=== PATIENT | male | born 1980 | race Caucasian/White ===

== ENCOUNTER 2017-04-17 16:48 | Inpatient (IN) | payer OTHER ==
[~2017-04-17] VITALS: Ht 185.4 cm; Wt 113.0 kg
[2017-04-17 17:51] LABS: BASOPHILS % (AUTO) 0.2 % (0-1); EOSINOPHILS % (AUTO) 0.5 % (0-6); HEMATOCRIT 42.1 % (42.0-52.0); HEMOGLOBIN 14.6 g/dl (14.0-17.9); LYMPHOCYTES # (AUTO) 1.4 X10'3 (1.1-4.8); LYMPHOCYTES % (AUTO) 13.6 % (21-51); MEAN CORPUSCULAR HEMOGLOBIN 29.9 PG (27.0-31.0); MEAN CORPUSCULAR HGB CONC 34.7 % (33.0-36.5); MEAN PLATELET VOLUME 7.9 FL (7.4-10.4); MONOCYTES # (AUTO) 0.8 X10'3 (0-0.9); MONOCYTES % (AUTO) 7.6 % (2-12); NEUTROPHILS # (AUTO) 8.2 X10'3 (1.8-7.7); NEUTROPHILS % (AUTO) 78.1 % (42-75); PLATELET COUNT 194 X10'3 (140-440); RED CELL DISTRIBUTION WIDTH 13.2 % (11.5-14.5); WHITE BLOOD COUNT 10.5 X10'3 (4.5-11.0)
[2017-04-17 17:58] LABS: PARTIAL THROMBOPLASTIN TIME 29 SECONDS (22-32); PROTHROMBIN TIME 9.9 SECONDS (9.0-12.0)
[2017-04-17 18:03] LABS: ALANINE AMINOTRANSFERASE 36 U/L (12-78); ALBUMIN 3.5 G/DL (3.4-5.0); ALBUMIN/GLOBULIN RATIO 0.8 (1.1-1.5); ALKALINE PHOSPHATASE 113 IU/L (46-116); ANION GAP 10 (8-16); ASPARTATE AMINO TRANSFERASE 17 U/L (10-37); BILIRUBIN,TOTAL 0.3 MG/DL (0.1-1.0); BLOOD UREA NITROGEN 13 MG/DL (7-18); BUN/CREATININE RATIO 11.9 (5.4-32.0); CALCIUM 8.7 MG/DL (8.5-10.1); CHLORIDE 101 MMOL/L (99-107); CREATININE 1.09 MG/DL (0.60-1.10); GLUCOSE 104 MG/DL (70-104); SODIUM 139 MMOL/L (135-145); TOTAL CARBON DIOXIDE 27.7 MMOL/L (24-32); TOTAL PROTEIN 7.9 G/DL (6.4-8.2); eGFR 76 ML/MIN
[2017-04-17] MEDS ORDERED: normal saline 1000ml 1,000 ML IV ONE (20:05)
[2017-04-17] MEDS ORDERED: vancomycin inj 1,000 MG in normal saline 250ml IV soln 250 ML IV STA (20:17)
[2017-04-17] MEDS ORDERED: iohexol 300mg/ml 100ml inj. ONE (20:22)
[2017-04-17] MEDS ORDERED: vancomycin/NS 1 GM ADD-VANTAGE 250 ML IV ONE (20:22)
[2017-04-17 20:37] LABS: CREATINE KINASE 48 U/L (39-308)
[2017-04-17] MEDS ORDERED: temazepam 15mg capsule PO PRN (21:00)
[2017-04-17 21:24] LABS: CLARITY,URINE CLEAR (Clear); COLOR,URINE YELLOW (Yellow); GLUCOSE, URINE NEGATIVE (Neg); KETONES,URINE NEGATIVE (Neg); LEUKOCYTE ESTERASE ,URINE NEGATIVE (Neg); NITRITES, URINE NEGATIVE (Neg); OCCULT BLOOD,URINE SMALL (Neg); PROTEIN,URINE NEGATIVE (Neg); UROBILINOGEN,URINE 0.2 E.U/dL (0.2-1.0)
[2017-04-17 21:29] LABS: UA COLLECTION TYPE CLN CATCH MIDSTREAM
[2017-04-17 21:30] LABS: BACTERIA,URINE NONE SEEN /HPF (Neg); MUCUS STRANDS NONE SEEN /LPF (Neg); RBC,URINE 0-2 /HPF (0-2); SQUAMOUS EPITHELIAL CELL,UR NONE SEEN /LPF (FEW); WBC,URINE NONE SEEN /HPF (0-4)
[2017-04-17] MEDS ORDERED: HYDROmorphone 1 mg/ml syringe IV ONE (21:50)
[2017-04-17] MEDS ORDERED: HYDROcodone/acetaminophen 5mg/325mg tablet PO ONE (22:15)
[2017-04-17] MEDS ORDERED: DIL100C PO (22:23)
[2017-04-17] MEDS ORDERED: magnesium 2GM in 50ml NS 50 ML IV PRN (23:55)
[2017-04-17] MEDS ORDERED: ondansetron/PF 4mg/2ml inj IV PRN (23:55)
[2017-04-17] MEDS ORDERED: potassium Cl 20 mEq SR tablet PO PRN ×2 (23:55)
[2017-04-17] MEDS ORDERED: morphine 2 MG/ML inj. syringe IV PRN ×2 (23:55)
[2017-04-17] MEDS ORDERED: magnesium hydroxide 30ml (MOM) UD suspension PO PRN (23:55)
[2017-04-17] MEDS ORDERED: HYDROcodone/acetaminophen 5mg/325mg tablet PO PRN (23:55)
[2017-04-17] MEDS ORDERED: mag hydrox/Alum hydrox/simeth 30ml oral suspension PO PRN (23:55)
[2017-04-17] MEDS ORDERED: potassium Cl 40MEQ/NS 500ml 500 ML IV PRN ×2 (23:55)
[2017-04-17] MEDS ORDERED: magnesium 4gm in 100ml NS 100 ML IV PRN (23:55)
[2017-04-17] MEDS ORDERED: acetaminophen 325mg tablet PO PRN (23:55)
[2017-04-17] MEDS ORDERED: magnesium Cl slow-release 64mg tablet PO PRN (23:55)
[2017-04-18 00:09] LABS: PHENYTOIN (DILANTIN) 5.8 UG/ML (10.0-20.0)
[2017-04-18] MEDS: levoFLOXACIN-Levaquin 750MG/D5 150 ML IV SCH (00:36)
[2017-04-18] MEDS: normal saline 1000ml 1,000 ML IV SCH ×3 (00:36→19:54)
[2017-04-18] MEDS ORDERED: phenytoin sod ER 100mg capsule PO ONE (02:20)
[2017-04-18] MEDS: K and/or MAG REPLACEMENT MC SCH (07:24)
[2017-04-18] MEDS: ibuprofen tablet 400 MG TABLET PO PRN ×2 (07:33→17:17)
[2017-04-18 07:36] LABS: BASOPHILS % (AUTO) 0.1 % (0-1); EOSINOPHILS # (AUTO) 0.1 X10'3 (0-0.9); EOSINOPHILS % (AUTO) 1.2 % (0-6); HEMATOCRIT 36.3 % (42.0-52.0); HEMOGLOBIN 12.9 g/dl (14.0-17.9); LYMPHOCYTES # (AUTO) 0.9 X10'3 (1.1-4.8); LYMPHOCYTES % (AUTO) 10.6 % (21-51); MEAN CORPUSCULAR HEMOGLOBIN 30.3 PG (27.0-31.0); MEAN CORPUSCULAR HGB CONC 35.6 % (33.0-36.5); MEAN CORPUSCULAR VOLUME 85.1 FL (78-98); MEAN PLATELET VOLUME 8.2 FL (7.4-10.4); MONOCYTES # (AUTO) 0.8 X10'3 (0-0.9); MONOCYTES % (AUTO) 9.6 % (2-12); NEUTROPHILS # (AUTO) 6.3 X10'3 (1.8-7.7); NEUTROPHILS % (AUTO) 78.5 % (42-75); PLATELET COUNT 161 X10'3 (140-440); RED BLOOD COUNT 4.26 X10'6 (4.70-6.10); RED CELL DISTRIBUTION WIDTH 13.4 % (11.5-14.5); WHITE BLOOD COUNT 8.1 X10'3 (4.5-11.0)
[2017-04-18] MEDS: heparin, porcine 5000 units/ml vial SQ SCH ×2 (07:52→20:54)
[2017-04-18 07:54] LABS: ALANINE AMINOTRANSFERASE 42 U/L (12-78); ALBUMIN 2.7 G/DL (3.4-5.0); ALBUMIN/GLOBULIN RATIO 0.7 (1.1-1.5); ALKALINE PHOSPHATASE 98 IU/L (46-116); ANION GAP 9 (8-16); ASPARTATE AMINO TRANSFERASE 22 U/L (10-37); BILIRUBIN,TOTAL 0.3 MG/DL (0.1-1.0); BLOOD UREA NITROGEN 9 MG/DL (7-18); BUN/CREATININE RATIO 9.7 (5.4-32.0); CALCIUM 7.7 MG/DL (8.5-10.1); CHLORIDE 103 MMOL/L (99-107); CREATININE 0.93 MG/DL (0.60-1.10); GLUCOSE 103 MG/DL (70-104); MAGNESIUM 1.9 MG/DL (1.5-2.4); POTASSIUM 4.1 MMOL/L (3.5-5.1); SODIUM 138 MMOL/L (135-145); TOTAL CARBON DIOXIDE 26.2 MMOL/L (24-32); TOTAL PROTEIN 6.5 G/DL (6.4-8.2); eGFR > 90 ML/MIN
[2017-04-18] MEDS ORDERED: levetiracetam 250mg tablet PO ONE (07:55)
[2017-04-18] MEDS ORDERED: vancomycin/NS 1 GM ADD-VANTAGE 250 ML IV SCH (08:00)
[2017-04-18] MEDS ORDERED: phenytoin sod ER 100mg capsule PO SCH (08:00)
[2017-04-18] MEDS: levetiracetam 250mg tablet PO SCH ×2 (08:00→20:54)
[2017-04-18 16:28] VITALS: BP 126/72
[2017-04-18 18:00] VITALS: BP 126/62
[2017-04-19] VITALS: BP 101/57
[2017-04-19] MEDS: levoFLOXACIN-Levaquin 750MG/D5 150 ML IV SCH (01:27)
[2017-04-19] MEDS: normal saline 1000ml 1,000 ML IV SCH ×2 (05:02→15:59)
[2017-04-19] MEDS: ibuprofen tablet 400 MG TABLET PO PRN ×2 (05:02→19:49)
[2017-04-19 05:56] LABS: BASOPHILS % (AUTO) 0.5 % (0-1); EOSINOPHILS # (AUTO) 0.2 X10'3 (0-0.9); EOSINOPHILS % (AUTO) 3.1 % (0-6); HEMATOCRIT 37.4 % (42.0-52.0); HEMOGLOBIN 13.1 g/dl (14.0-17.9); LYMPHOCYTES # (AUTO) 1.1 X10'3 (1.1-4.8); LYMPHOCYTES % (AUTO) 15.6 % (21-51); MEAN CORPUSCULAR HEMOGLOBIN 30.1 PG (27.0-31.0); MEAN CORPUSCULAR HGB CONC 34.9 % (33.0-36.5); MEAN PLATELET VOLUME 8.2 FL (7.4-10.4); MONOCYTES # (AUTO) 0.6 X10'3 (0-0.9); MONOCYTES % (AUTO) 9.3 % (2-12); NEUTROPHILS % (AUTO) 71.5 % (42-75); PLATELET COUNT 200 X10'3 (140-440); RED BLOOD COUNT 4.35 X10'6 (4.70-6.10)
[2017-04-19 06:18] LABS: ALANINE AMINOTRANSFERASE 63 U/L (12-78); ALBUMIN 2.4 G/DL (3.4-5.0); ALBUMIN/GLOBULIN RATIO 0.6 (1.1-1.5); ALKALINE PHOSPHATASE 115 IU/L (46-116); ANION GAP 8 (8-16); ASPARTATE AMINO TRANSFERASE 41 U/L (10-37); BILIRUBIN,TOTAL 0.2 MG/DL (0.1-1.0); BLOOD UREA NITROGEN 12 MG/DL (7-18); BUN/CREATININE RATIO 16.7 (5.4-32.0); CALCIUM 7.9 MG/DL (8.5-10.1); CHLORIDE 106 MMOL/L (99-107); CREATININE 0.72 MG/DL (0.60-1.10); GLUCOSE 97 MG/DL (70-104); MAGNESIUM 1.9 MG/DL (1.5-2.4); SODIUM 141 MMOL/L (135-145); TOTAL CARBON DIOXIDE 26.8 MMOL/L (24-32); TOTAL PROTEIN 6.6 G/DL (6.4-8.2); eGFR > 90 ML/MIN
[2017-04-19 06:20] LABS: POTASSIUM 4.2 MMOL/L (3.5-5.1)
[2017-04-19 07:00] VITALS: BP 128/80
[2017-04-19] MEDS: K and/or MAG REPLACEMENT MC SCH (08:00)
[2017-04-19] MEDS: levetiracetam 250mg tablet PO SCH ×2 (08:00→21:15)
[2017-04-19] MEDS: heparin, porcine 5000 units/ml vial SQ SCH ×2 (08:34→19:50)
[2017-04-19 11:00] VITALS: BP 123/82
[2017-04-19] MEDS: HYDROcodone/acetaminophen 10/325mg tab PO PRN (12:28)
[2017-04-19] MEDS ORDERED: VANCOMYCIN LEVEL IV ONE (15:30)
[2017-04-19] MEDS: lactobacillus rhamnosus 10,000 MMU CELLS/CAPSULE PO SCH (17:16)
[2017-04-19 18:00] VITALS: BP 126/75
[2017-04-20] VITALS: BP 116/62
[2017-04-20] MEDS: levoFLOXACIN-Levaquin 750MG/D5 150 ML IV SCH (01:25)
[2017-04-20] MEDS: normal saline 1000ml 1,000 ML IV SCH ×3 (01:54→19:43)
[2017-04-20] MEDS: ibuprofen tablet 400 MG TABLET PO PRN ×3 (03:07→21:32)
[2017-04-20 03:36] LABS: BASOPHILS # (AUTO) 0.1 X10'3 (0-0.2); BASOPHILS % (AUTO) 0.7 % (0-1); EOSINOPHILS # (AUTO) 0.2 X10'3 (0-0.9); HEMATOCRIT 36.6 % (42.0-52.0); HEMOGLOBIN 12.7 g/dl (14.0-17.9); LYMPHOCYTES # (AUTO) 2.1 X10'3 (1.1-4.8); LYMPHOCYTES % (AUTO) 25.9 % (21-51); MEAN CORPUSCULAR HEMOGLOBIN 30.2 PG (27.0-31.0); MEAN CORPUSCULAR HGB CONC 34.8 % (33.0-36.5); MEAN CORPUSCULAR VOLUME 86.8 FL (78-98); MEAN PLATELET VOLUME 7.9 FL (7.4-10.4); MONOCYTES # (AUTO) 0.6 X10'3 (0-0.9); MONOCYTES % (AUTO) 7.9 % (2-12); NEUTROPHILS # (AUTO) 5.1 X10'3 (1.8-7.7); NEUTROPHILS % (AUTO) 62.5 % (42-75); PLATELET COUNT 233 X10'3 (140-440); RED BLOOD COUNT 4.22 X10'6 (4.70-6.10); RED CELL DISTRIBUTION WIDTH 13.2 % (11.5-14.5); WHITE BLOOD COUNT 8.1 X10'3 (4.5-11.0)
[2017-04-20 03:52] LABS: ALANINE AMINOTRANSFERASE 79 U/L (12-78); ALBUMIN 2.4 G/DL (3.4-5.0); ALBUMIN/GLOBULIN RATIO 0.6 (1.1-1.5); ALKALINE PHOSPHATASE 138 IU/L (46-116); ANION GAP 7 (8-16); ASPARTATE AMINO TRANSFERASE 40 U/L (10-37); BILIRUBIN,TOTAL 0.2 MG/DL (0.1-1.0); BLOOD UREA NITROGEN 16 MG/DL (7-18); BUN/CREATININE RATIO 18.8 (5.4-32.0); CALCIUM 8.3 MG/DL (8.5-10.1); CHLORIDE 107 MMOL/L (99-107); CREATININE 0.85 MG/DL (0.60-1.10); GLUCOSE 105 MG/DL (70-104); MAGNESIUM 2.3 MG/DL (1.5-2.4); SODIUM 144 MMOL/L (135-145); TOTAL CARBON DIOXIDE 30.2 MMOL/L (24-32); TOTAL PROTEIN 6.5 G/DL (6.4-8.2); eGFR > 90 ML/MIN
[2017-04-20 07:23] VITALS: BP 118/73
[2017-04-20] MEDS: heparin, porcine 5000 units/ml vial SQ SCH ×2 (07:37→19:40)
[2017-04-20] MEDS: lactobacillus rhamnosus 10,000 MMU CELLS/CAPSULE PO SCH ×2 (07:37→17:06)
[2017-04-20] MEDS: K and/or MAG REPLACEMENT MC SCH (08:00)
[2017-04-20] MEDS: levetiracetam 250mg tablet PO SCH ×2 (08:00→21:32)
[2017-04-20 11:00] VITALS: BP 124/72
[2017-04-20] MEDS ORDERED: piperacillin/tazo 3.375gm/50ml 50 ML IV ONE (11:45)
[2017-04-20] MEDS ORDERED: triamcinolone acetonide 0.1% ointment 15gm TP ONE (11:45)
[2017-04-20] MEDS: piperacillin/tazo 3.375gm/50ml 50 ML IV SCH ×2 (13:22→19:40)
[2017-04-20] MEDS: vancomycin inj 1,250 MG in normal saline 250ml IV soln 250 ML IV SCH ×2 (14:09→20:32)
[2017-04-20 20:00] VITALS: BP 135/73
[2017-04-20] MEDS: triamcinolone acetonide 0.1% ointment 15gm TP SCH (20:00)
[2017-04-21] VITALS: BP 122/71
[2017-04-21] MEDS: piperacillin/tazo 3.375gm/50ml 50 ML IV SCH ×4 (01:47→19:44)
[2017-04-21] MEDS: vancomycin inj 1,250 MG in normal saline 250ml IV soln 250 ML IV SCH ×4 (02:47→21:05)
[2017-04-21 06:52] VITALS: BP 126/79
[2017-04-21] MEDS: lactobacillus rhamnosus 10,000 MMU CELLS/CAPSULE PO SCH ×2 (07:25→17:30)
[2017-04-21] MEDS: ibuprofen tablet 400 MG TABLET PO PRN ×2 (07:25→19:44)
[2017-04-21] MEDS: heparin, porcine 5000 units/ml vial SQ SCH ×2 (07:26→19:44)
[2017-04-21] MEDS ORDERED: VANCOMYCIN LEVEL IV NR (07:30)
[2017-04-21] MEDS: normal saline 1000ml 1,000 ML IV SCH ×2 (07:54→13:05)
[2017-04-21] MEDS: K and/or MAG REPLACEMENT MC SCH (08:00)
[2017-04-21] MEDS: triamcinolone acetonide 0.1% ointment 15gm TP SCH ×2 (08:00→20:00)
[2017-04-21] MEDS: levetiracetam 250mg tablet PO SCH ×2 (08:49→21:33)
[2017-04-21 08:53] LABS: BASOPHILS # (AUTO) 0.1 X10'3 (0-0.2); BASOPHILS % (AUTO) 0.7 % (0-1); EOSINOPHILS # (AUTO) 0.2 X10'3 (0-0.9); EOSINOPHILS % (AUTO) 2.8 % (0-6); HEMATOCRIT 37.3 % (42.0-52.0); HEMOGLOBIN 13.3 g/dl (14.0-17.9); LYMPHOCYTES # (AUTO) 1.6 X10'3 (1.1-4.8); LYMPHOCYTES % (AUTO) 18.9 % (21-51); MEAN CORPUSCULAR HEMOGLOBIN 30.4 PG (27.0-31.0); MEAN CORPUSCULAR HGB CONC 35.7 % (33.0-36.5); MEAN CORPUSCULAR VOLUME 85.1 FL (78-98); MEAN PLATELET VOLUME 7.4 FL (7.4-10.4); MONOCYTES # (AUTO) 0.5 X10'3 (0-0.9); MONOCYTES % (AUTO) 5.9 % (2-12); NEUTROPHILS # (AUTO) 5.9 X10'3 (1.8-7.7); NEUTROPHILS % (AUTO) 71.7 % (42-75); PLATELET COUNT 292 X10'3 (140-440); RED BLOOD COUNT 4.38 X10'6 (4.70-6.10); RED CELL DISTRIBUTION WIDTH 13.3 % (11.5-14.5); WHITE BLOOD COUNT 8.2 X10'3 (4.5-11.0)
[2017-04-21 09:13] LABS: ALANINE AMINOTRANSFERASE 76 U/L (12-78); ALBUMIN 2.5 G/DL (3.4-5.0); ALBUMIN/GLOBULIN RATIO 0.6 (1.1-1.5); ALKALINE PHOSPHATASE 159 IU/L (46-116); ANION GAP 7 (8-16); ASPARTATE AMINO TRANSFERASE 39 U/L (10-37); BILIRUBIN,TOTAL 0.4 MG/DL (0.1-1.0); BLOOD UREA NITROGEN 9 MG/DL (7-18); CALCIUM 8.4 MG/DL (8.5-10.1); CHLORIDE 105 MMOL/L (99-107); CREATININE 0.82 MG/DL (0.60-1.10); GLUCOSE 92 MG/DL (70-104); MAGNESIUM 2.1 MG/DL (1.5-2.4); POTASSIUM 4.2 MMOL/L (3.5-5.1); SODIUM 142 MMOL/L (135-145); TOTAL CARBON DIOXIDE 30.2 MMOL/L (24-32); TOTAL PROTEIN 6.9 G/DL (6.4-8.2); eGFR > 90 ML/MIN
[2017-04-21 09:16] LABS: VANCOMYCIN,TROUGH 17.5 UG/ML (6.0-14.0)
[2017-04-21 11:24] VITALS: BP 121/69
[2017-04-21 20:00] VITALS: BP 138/77
[2017-04-22] VITALS: BP 110/62
[2017-04-22] MEDS: piperacillin/tazo 3.375gm/50ml 50 ML IV SCH ×3 (02:11→15:03)
[2017-04-22] MEDS: vancomycin inj 1,250 MG in normal saline 250ml IV soln 250 ML IV SCH ×4 (02:49→20:50)
[2017-04-22] MEDS: normal saline 1000ml 1,000 ML IV SCH ×3 (04:35→23:54)
[2017-04-22 05:43] LABS: BASOPHILS # (AUTO) 0.1 X10'3 (0-0.2); BASOPHILS % (AUTO) 0.8 % (0-1); EOSINOPHILS # (AUTO) 0.4 X10'3 (0-0.9); EOSINOPHILS % (AUTO) 4.6 % (0-6); HEMATOCRIT 38.5 % (42.0-52.0); HEMOGLOBIN 13.4 g/dl (14.0-17.9); LYMPHOCYTES # (AUTO) 1.6 X10'3 (1.1-4.8); LYMPHOCYTES % (AUTO) 19.1 % (21-51); MEAN CORPUSCULAR HGB CONC 34.8 % (33.0-36.5); MEAN PLATELET VOLUME 7.4 FL (7.4-10.4); MONOCYTES # (AUTO) 0.6 X10'3 (0-0.9); MONOCYTES % (AUTO) 7.4 % (2-12); NEUTROPHILS # (AUTO) 5.6 X10'3 (1.8-7.7); NEUTROPHILS % (AUTO) 68.1 % (42-75); PLATELET COUNT 327 X10'3 (140-440); RED BLOOD COUNT 4.48 X10'6 (4.70-6.10); RED CELL DISTRIBUTION WIDTH 13.5 % (11.5-14.5); WHITE BLOOD COUNT 8.2 X10'3 (4.5-11.0)
[2017-04-22 06:19] LABS: ALANINE AMINOTRANSFERASE 126 U/L (12-78); ALBUMIN 2.5 G/DL (3.4-5.0); ALBUMIN/GLOBULIN RATIO 0.6 (1.1-1.5); ALKALINE PHOSPHATASE 180 IU/L (46-116); ANION GAP 8 (8-16); ASPARTATE AMINO TRANSFERASE 54 U/L (10-37); BILIRUBIN,TOTAL 0.3 MG/DL (0.1-1.0); BLOOD UREA NITROGEN 10 MG/DL (7-18); BUN/CREATININE RATIO 11.9 (5.4-32.0); CALCIUM 8.1 MG/DL (8.5-10.1); CHLORIDE 106 MMOL/L (99-107); CREATININE 0.84 MG/DL (0.60-1.10); GLUCOSE 94 MG/DL (70-104); MAGNESIUM 2.4 MG/DL (1.5-2.4); POTASSIUM 4.2 MMOL/L (3.5-5.1); SODIUM 142 MMOL/L (135-145); TOTAL CARBON DIOXIDE 27.6 MMOL/L (24-32); TOTAL PROTEIN 6.8 G/DL (6.4-8.2); eGFR > 90 ML/MIN
[2017-04-22 07:25] VITALS: BP 120/64
[2017-04-22] MEDS: triamcinolone acetonide 0.1% ointment 15gm TP SCH ×3 (08:00→20:53)
[2017-04-22] MEDS: K and/or MAG REPLACEMENT MC SCH (08:00)
[2017-04-22] MEDS: lactobacillus rhamnosus 10,000 MMU CELLS/CAPSULE PO SCH ×2 (08:41→17:04)
[2017-04-22] MEDS: heparin, porcine 5000 units/ml vial SQ SCH ×2 (08:42→20:53)
[2017-04-22] MEDS: levetiracetam 250mg tablet PO SCH ×2 (08:44→20:59)
[2017-04-22 11:00] VITALS: BP 126/69
[2017-04-22] MEDS: HYDROcodone/acetaminophen 10/325mg tab PO PRN (17:06)
[2017-04-22 20:00] VITALS: BP 132/80
[2017-04-22] MEDS ORDERED: phenytoin sod ER 100mg capsule PO SCH (21:00)
[2017-04-22] MEDS: ibuprofen tablet 400 MG TABLET PO PRN (22:46)
[2017-04-23] VITALS: BP 138/94
[2017-04-23] MEDS: vancomycin inj 1,250 MG in normal saline 250ml IV soln 250 ML IV SCH ×4 (02:01→20:37)
[2017-04-23] MEDS: normal saline 1000ml 1,000 ML IV SCH ×2 (02:04→14:00)
[2017-04-23] MEDS: levetiracetam 250mg tablet PO SCH ×2 (08:00→20:37)
[2017-04-23] MEDS: K and/or MAG REPLACEMENT MC SCH (08:00)
[2017-04-23 08:05] VITALS: BP 114/67
[2017-04-23] MEDS: lactobacillus rhamnosus 10,000 MMU CELLS/CAPSULE PO SCH ×2 (09:40→16:58)
[2017-04-23] MEDS: heparin, porcine 5000 units/ml vial SQ SCH ×2 (09:43→20:38)
[2017-04-23 11:00] VITALS: BP 130/79
[2017-04-23] MEDS: HYDROcodone/acetaminophen 10/325mg tab PO PRN (12:40)
[2017-04-23 20:00] VITALS: BP 132/74
[2017-04-23] MEDS: triamcinolone acetonide 0.1% ointment 15gm TP SCH (20:37)
[2017-04-23] MEDS: ibuprofen tablet 400 MG TABLET PO PRN (20:39)
[2017-04-24] VITALS: BP 124/73
[2017-04-24] MEDS: vancomycin inj 1,250 MG in normal saline 250ml IV soln 250 ML IV SCH ×4 (02:16→19:18)
[2017-04-24] MEDS: normal saline 1000ml 1,000 ML IV SCH ×2 (02:16→17:15)
[2017-04-24 08:00] VITALS: BP 120/75
[2017-04-24] MEDS: K and/or MAG REPLACEMENT MC SCH (08:00)
[2017-04-24] MEDS: levetiracetam 250mg tablet PO SCH ×2 (08:00→21:34)
[2017-04-24] MEDS: heparin, porcine 5000 units/ml vial SQ SCH ×2 (08:48→19:18)
[2017-04-24] MEDS: triamcinolone acetonide 0.1% ointment 15gm TP SCH ×2 (08:49→19:22)
[2017-04-24] MEDS: lactobacillus rhamnosus 10,000 MMU CELLS/CAPSULE PO SCH ×2 (08:53→17:14)
[2017-04-24 09:29] LABS: BASOPHILS # (AUTO) 0.1 X10'3 (0-0.2); BASOPHILS % (AUTO) 0.7 % (0-1); EOSINOPHILS # (AUTO) 0.3 X10'3 (0-0.9); EOSINOPHILS % (AUTO) 3.5 % (0-6); HEMATOCRIT 39.5 % (42.0-52.0); LYMPHOCYTES # (AUTO) 1.6 X10'3 (1.1-4.8); LYMPHOCYTES % (AUTO) 19.5 % (21-51); MEAN CORPUSCULAR HGB CONC 35.3 % (33.0-36.5); MEAN CORPUSCULAR VOLUME 84.8 FL (78-98); MEAN PLATELET VOLUME 7.2 FL (7.4-10.4); MONOCYTES # (AUTO) 0.8 X10'3 (0-0.9); MONOCYTES % (AUTO) 9.3 % (2-12); NEUTROPHILS # (AUTO) 5.5 X10'3 (1.8-7.7); PLATELET COUNT 423 X10'3 (140-440); RED BLOOD COUNT 4.66 X10'6 (4.70-6.10); RED CELL DISTRIBUTION WIDTH 13.5 % (11.5-14.5); WHITE BLOOD COUNT 8.2 X10'3 (4.5-11.0)
[2017-04-24 09:38] LABS: ALBUMIN 2.8 G/DL (3.4-5.0); ANION GAP 10 (8-16); BLOOD UREA NITROGEN 12 MG/DL (7-18); BUN/CREATININE RATIO 15.4 (5.4-32.0); CALCIUM 9.1 MG/DL (8.5-10.1); CHLORIDE 107 MMOL/L (99-107); CREATININE 0.78 MG/DL (0.60-1.10); GLUCOSE 104 MG/DL (70-104); MAGNESIUM 2.4 MG/DL (1.5-2.4); POTASSIUM 4.1 MMOL/L (3.5-5.1); SODIUM 144 MMOL/L (135-145); TOTAL CARBON DIOXIDE 27.3 MMOL/L (24-32); eGFR > 90 ML/MIN
[2017-04-24] MEDS: HYDROcodone/acetaminophen 10/325mg tab PO PRN (11:33)
[2017-04-24 12:16] VITALS: BP 134/77
[2017-04-24 19:00] VITALS: BP 126/71
[2017-04-24] MEDS: ibuprofen tablet 400 MG TABLET PO PRN (19:29)
[2017-04-25] VITALS: BP 107/51
[2017-04-25] MEDS: vancomycin inj 1,250 MG in normal saline 250ml IV soln 250 ML IV SCH (01:29)
[2017-04-25] MEDS: normal saline 1000ml 1,000 ML IV SCH ×2 (01:30→11:54)
[2017-04-25] MEDS: heparin, porcine 5000 units/ml vial SQ SCH (08:00)
[2017-04-25] MEDS: levetiracetam 250mg tablet PO SCH (08:00)
[2017-04-25] MEDS: K and/or MAG REPLACEMENT MC SCH (08:00)
[2017-04-25] MEDS: lactobacillus rhamnosus 10,000 MMU CELLS/CAPSULE PO SCH (08:13)
[2017-04-25 08:24] VITALS: BP 116/66
[2017-04-25] MEDS: HYDROcodone/acetaminophen 10/325mg tab PO PRN (09:31)
[2017-04-25] MEDS ORDERED: TRIA15OI2 TP (11:59)
[2017-04-25] MEDS ORDERED: LACT1CAP26 PO (11:59)
[2017-04-25] MEDS ORDERED: LEVE250T PO (11:59)
[2017-04-25] MEDS ORDERED: TEMA15CA PO (11:59)
[2017-04-25] MEDS ORDERED: HYDR-3972 PO (11:59)
[2017-04-25] MEDS ORDERED: DOXY-200 PO (11:59)
[2017-04-25] MEDS ORDERED: IBUP-1984 PO (11:59)
[2017-04-25] MEDS: triamcinolone acetonide 0.1% ointment 15gm TP SCH (12:02)
[2017-04-25 12:25] VITALS: BP 125/80
[2017-04-25] MEDS ORDERED: doxycycline hyclate 100mg tablet.DR PO SCH (17:30)
== END 2017-04-25 14:00 | disposition home or self-care (01) | DRG 918 ==
LOC: ER 16:49 → ED HOLD 23:54 → MED 3N 04-18 16:26
PROVIDERS: ADMIT Internal Medicine; ATTEND Internal Medicine Nephrology
PROC: 0H9KXZZ Drainage of Right Lower Leg Skin, External Approach (ICD-10-PCS; principal; 2017-04-22)
DX: T65.891A Toxic effect of other specified substances, accidental (unintentional), initial encounter (principal); L03.115 Cellulitis of right lower limb; T24.631A Corrosion of second degree of right lower leg, initial encounter; E66.9 Obesity, unspecified; E78.00 Pure hypercholesterolemia, unspecified; L13.9 Bullous disorder, unspecified; E78.5 Hyperlipidemia, unspecified; G40.909 Epilepsy, unspecified, not intractable, without status epilepticus; Z88.6 Allergy status to analgesic agent; Z79.899 Other long term (current) drug therapy; Z68.32 Body mass index [BMI] 32.0-32.9, adult; Y93.89 Activity, other specified; Y92.89 Other specified places as the place of occurrence of the external cause; Y99.8 Other external cause status
CPT/HCPCS: 36415; 71045; 73701; 80048; 80053; 80185; 80202; 81001; 82550; 83605; 83735; 84145; 85025; 85610; 85730; 87040; 87070; 87075; 93971; 96365; 96366; 99285; A4649; A6223; A6258; A6446; A6449; J1644; J1956; J2543; J3370; J7030; Q9967

== ENCOUNTER 2018-03-05 07:41 | Emergency (ER) | payer MEDICAID, OTHER ==
[~2018-03-05] VITALS: Ht 185.4 cm; Wt 112.0 kg
[~2018-03-05 07:41] MED LIST: DOXY-200 PO; HYDR-3972 PO; IBUP-1984 PO; LACT1CAP26 PO; LEVE250T PO; TEMA15CA PO; TRIA15OI2 TP
[2018-03-05 09:10] VITALS: BP 156/83
== END 2018-03-05 09:12 | disposition home or self-care (01) ==
LOC: ER 07:42
DX: G40.909 Epilepsy, unspecified, not intractable, without status epilepticus (principal); J02.9 Acute pharyngitis, unspecified; E78.00 Pure hypercholesterolemia, unspecified; Z98.890 Other specified postprocedural states; Z88.6 Allergy status to analgesic agent; Z79.2 Long term (current) use of antibiotics; Z79.899 Other long term (current) drug therapy
CPT/HCPCS: 36415; 80185; 99283